=== PATIENT | female | born 1990 | race Caucasian/White ===

== ENCOUNTER → 2021-08-26 | Outpatient (CLI) | payer BC ==
--- NOTE | 2021-08-26 14:50 | REP ---
INDICATION: PAIN IN PELVIS. COMPARISON: None. TECHNIQUE: Transabdominal and transvaginal scanning performed. FINDINGS: Uterine dimensions are 7.5 x 3.0 x 3.9 cm. Endometrial echo is 4 mm in AP dimension and centrally placed. The bladder measures 10.4 x 6.6 x 9.3cm. The right ovary has dimensions of 1.7 x 1.5 x 1.7 cm. It's Doppler flow is normal with a resistive index of 0.48. The left ovary dimensions are 1.7 x 2.2 x 1.1 cm. Doppler evaluation of left ovary was not obtained. There is no adnexal mass identified. No free fluid is seen in the cul-de-sac. IMPRESSION: Negative pelvic ultrasound. <Electronically signed by Maxim Cole > 08/26/21 [id number]
== END ==
LOC: M RAD 14:05
PROVIDERS: ATTEND Pediatrics
DX: R10.2 Pelvic and perineal pain (principal)